=== PATIENT | male | born 1975 ===

== ENCOUNTER 2020-07-30 12:37 | Emergency (ER) | payer SELFPAY ==
[2020-07-30] MEDS ORDERED: Sodium Chloride 0.9% 1,000 ML IV ONE (13:06)
[2020-07-30] MEDS ORDERED: Sodium Chloride 0.9% 10 ML Syringe FLUSH PRN (13:06)
[2020-07-30] MEDS ORDERED: Morphine 4 MG/ML Syringe IVPUSH ONE (13:06)
[2020-07-30] MEDS ORDERED: Ondansetron 4 MG/2 ML SDV IVPUSH ONE (13:06)
[2020-07-30] MEDS ORDERED: Sodium Chloride 0.9% 2.5 ML Syringe FLUSH PRN (13:06)
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
[2020-07-30 13:32] LABS: BLOOD UREA NITROGEN,BUN 10 mg/dL (7.0-18.0); CARBON DIOXIDE,CO2 25.4 mmol/L (21.0-32.0); CHLORIDE,CL 101 mmol/L (98-107); GLUCOSE RANDOM 102 mg/dL (74-106); LIPASE 62 U/L (73-393); POTASSIUM,K 3.7 mmol/L (3.5-5.1); SODIUM,NA 138 mmol/L (136-148)
--- NOTE | 2020-07-30 13:34 | CR ---
HISTORY: Right upper quadrant pain. TECHNIQUE: Portable frontal view the chest. COMPARISON: Chest x-ray and rib series 06/22/2019. FINDINGS: Mildly elevated right hemidiaphragm. Right basilar atelectasis and atelectasis along the minor fissure. No airspace consolidation. No moderate or large pleural effusion. No pneumothorax. Cardiomediastinal silhouette size is within normal limits. IMPRESSION: Atelectasis in the lower right lung. Dictated by Roberto Ewing MD @ Jul 30 2020 1:30PM Signed by Dr. Roberto Ewing @ Jul 30 2020 1:32PM
--- NOTE | 2020-07-30 14:17 | US ---
HISTORY: Right upper quadrant pain. TECHNIQUE: Ultrasound of the right upper quadrant. COMPARISON: None. FINDINGS: Diffusely increased echogenicity of the liver. No liver mass. No intrahepatic bile duct dilation. No cholelithiasis, gallbladder wall thickening, or pericholecystic fluid. Common bile duct measures 3 mm in diameter, within normal limits. Pancreas is not well visualized. Right kidney measures 12.3 cm long axis. Normal renal parenchymal thickness and echogenicity. No renal mass. No hydronephrosis. Proximal aorta measures 1.9 cm AP. Mid aorta measures 1.2 cm AP. Distal aorta is not optimally visualized but may measure up to 2.2 cm AP. IMPRESSION: 1. Fatty infiltration of liver. 2. No cholelithiasis or bile duct dilation. Dictated by Roberto Ewing MD @ Jul 30 2020 2:13PM Signed by Dr. Roberto Ewing @ Jul 30 2020 2:16PM
[2020-07-30] MEDS ORDERED: Iopamidol 755 MG/ML 500 ML Multipack Bottle IVPUSH ONE ×2 (14:47→16:18)
--- NOTE | 2020-07-30 15:24 | CT ---
INDICATION: Right upper quadrant abdominal pain and tenderness. Elevated white blood cell count. TECHNIQUE: CT abdomen and pelvis acquired with IV contrast. 100 mL IV Isovue 370. COMPARISON: Right upper quadrant ultrasound 07/30/2020. Chest radiograph 07/30/2020. FINDINGS: Lower chest: There is linear atelectasis in the lung bases. Liver: The liver is enlarged measuring 24 cm in length. The parenchyma is diffusely hypoattenuating consistent with hepatic steatosis. There is an additional area of more pronounced focal fatty infiltration involving the caudate lobe. Gallbladder and bile ducts: No cholelithiasis or biliary ductal dilatation. Spleen: Unremarkable. Pancreas: Unremarkable. Adrenal glands: Unremarkable. Kidneys: No kidney or ureteral stones and no hydronephrosis. No renal lesions. GI tract: Small hiatal hernia. Sigmoid colonic diverticulosis no evidence of acute diverticulitis. Appendix is normal. Vascular structures: No sign of aneurysm. Lymph nodes: No lymphadenopathy in the abdomen or pelvis. Miscellaneous: There is a small amount of free fluid in the pelvis. No intra-abdominal free air. Pelvic Organs: The urinary bladder appears unremarkable. Bones: No acute abnormality. No suspicious bone lesion. IMPRESSION: 1. Hepatomegaly and hepatic steatosis. 2. Amount of pelvic free fluid is nonspecific. 3. Diverticulosis without evidence of acute diverticulitis. 4. Small hiatal hernia. Please note that all CT scans at this facility use dose modulation, iterative reconstruction, and/or weight-based dosing when appropriate to reduce radiation dose to as low as reasonably achievable. Dictated by Lindsay Beltran MD @ Jul 30 2020 3:02PM Signed by Dr. Lindsay Beltran @ Jul 30 2020 3:22PM
--- NOTE | 2020-07-30 16:47 | CT ---
INDICATION: Chest pain. Dyspnea. Tachycardia. Elevated white blood cell count. TECHNIQUE: Contrast-enhanced chest CT. 90 cc nonionic Isovue-370 administered. COMPARISON: Correlation is made with a CT of the abdomen and pelvis performed on the same date. Correlation is made with an abdomen ultrasound from the same date. Correlation is made with a portable chest x-ray from the same date. FINDINGS: Poor and suboptimal opacification of the pulmonary arterial tree. This makes exclusion of pulmonary emboli impossible. No thoracic aortic aneurysm. No definite dissection. Paraseptal emphysematous type changes best appreciated in the upper lobes. Focal eventration of the anterior right hemidiaphragm. Patchy infiltrates and/or atelectasis within the right middle lobe, inferior right upper lobe, right lung base anterolaterally and posteriorly as well as within the lingular left upper lobe. While the appearance is more compatible with areas of atelectasis, multifocal infection could not be entirely excluded. No pleural or pericardial effusions however. Hepatomegaly. Hepatic steatosis. Normal adrenal glands. No splenomegaly. The included skeleton is unremarkable. IMPRESSION: 1. Paraseptal emphysematous type changes. Scattered areas of localized atelectasis or infiltrates right greater than left predominantly at the right lung base but also involving the right middle lobe, less so the inferior right upper lobe and lingular left upper lobe. No pleural or pericardial effusions. 2. Suboptimal bolus enhancement of the pulmonary arterial tree makes exclusion of pulmonary emboli impossible. 3. No thoracic aortic aneurysm. No convincing evidence for dissection. Please note that all CT scans at this facility use dose modulation, iterative reconstruction, and/or weight-based dosing when appropriate to reduce radiation dose to as low as reasonably achievable. Dictated by Rajiv Meadows MD @ Jul 30 2020 4:38PM Signed by Dr. Rajiv Meadows @ Jul 30 2020 4:45PM
[2020-07-30 17:49] LABS: CORONAVIRUS COVID-19 NAA NEGATIVE (NEGATIVE); INFLUENZA A NAA NEGATIVE (NEGATIVE); INFLUENZA B NAA NEGATIVE (NEGATIVE)
[2020-07-30 18:09] VITALS: BP 136/65; PULSE 103
== END 2020-07-30 18:13 | disposition home or self-care (01) ==
LOC: MW.ED 12:37
DX: R10.11 Right upper quadrant pain (principal); R10.13 Epigastric pain; D72.829 Elevated white blood cell count, unspecified; J45.909 Unspecified asthma, uncomplicated; E66.9 Obesity, unspecified; Z68.34 Body mass index [BMI] 34.0-34.9, adult; Z88.0 Allergy status to penicillin; Z91.030 Bee allergy status; Z20.822 Contact with and (suspected) exposure to COVID-19
CPT/HCPCS: 0240U; 36415; 71045; 71275; 74177; 76705; 80053; 83605; 83690; 85025; 96374; 96375; 99284; J2270; J2405; J7030; Q9967

== ENCOUNTER 2020-10-23 00:30 | Emergency (ER) | payer OTHER, SELFPAY ==
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
[2020-10-23] MEDS ORDERED: Ibuprofen 600 MG Tab PO ONE (00:47)
--- NOTE | 2020-10-23 01:01 | CR ---
INDICATION: Wrist pain following fall TECHNIQUE: Wrist radiograph 3 views left COMPARISON: None FINDINGS: Bone: No acute fractures or aggressive bone lesions are identified. Joint: The radiocarpal, carpal, and carpometacarpal joints are unremarkable in appearance. Soft tissue: Unremarkable. No radiopaque foreign bodies are seen. IMPRESSION: 1. No acute osseous injuries or abnormalities are noted. Dictated by: Robin Gu MD @ 10/23/2020 01:01:03 (Electronically Signed)
[2020-10-23 01:20] VITALS: BP 110/70; PULSE 88
== END 2020-10-23 01:18 | disposition home or self-care (01) ==
LOC: MW.ED 00:30
DX: S63.502A Unspecified sprain of left wrist, initial encounter (principal); E66.9 Obesity, unspecified; Z68.30 Body mass index [BMI] 30.0-30.9, adult; Z88.0 Allergy status to penicillin; Z91.030 Bee allergy status; W18.40XA Slipping, tripping and stumbling without falling, unspecified, initial encounter
CPT/HCPCS: 73110; 99283; A9270